=== PATIENT | male | born 1950 | race Caucasian/White ===

== ENCOUNTER 2017-10-06 17:59 | Emergency (ER) | payer MEDICARE ==
[2017-10-06 19:08] LABS: Lactate 0.78 mmol/L (0.50-2.20)
[2017-10-06 19:09] LABS: #Basophils 0.1 thou/uL (0.0-0.2); #Eosinphils 0.2 thou/uL (0.0-0.7); #Monocytes 0.8 thou/uL (0.11-0.59); #Neutrophils 8.8 thou/uL (1.40-6.50); %Basophils 0.5 % (0.0-1.0); %Lymphocytes 17.1 % (21.0-51.0); %Neutrophils 73.5 % (42.0-75.0); Hemoglobin 11.3 g/dL (14.0-18.0); Mean Platelet Volume 6.9 fL (7.4-10.4); Platelet Count 248 thou/uL (130-400); RBC Distribution Width 13.7 % (11.5-14.5); Red Blood Cell (RBC) Count 3.91 mill/uL (4.70-6.10); White Blood Cell (WBC) Count 11.9 thou/uL (4.8-10.8)
[2017-10-06 19:15] LABS: INR-International Normal Ratio 1.7; Prothrombin Time 20.1 SEC (12.0-14.7)
[2017-10-06 19:31] LABS: Anion Gap 12 mmol/L (10-20); BUN (Urea Nitrogen) 13 mg/dL (8.4-25.7); Calc. Creatinine Clearance 0 mL/min (70-130); Carbon Dioxide 28 mmol/L (23-31); Chloride 99 mmol/L (98-107); Estimated GFR-MDRD Greater than 90; Glucose 102 mg/dL (80-115); Potassium 4.3 mmol/L (3.5-5.1); Sodium 135 mmol/L (136-145)
--- NOTE | 2017-10-06 20:17 | RAD ---
FRONTAL VIEW CHEST: 10/06/17 COMPARISON: None. HISTORY: Fever. FINDINGS: there is no lobar consolidation. Minimal patchy bibasilar densities are seen. Evidence of prior farah otomy. Cardiac silhouette is mildly enlarged. Hardware overlies the thoracic spine. No significant va scular congestion. IMPRESSION: No lobar consolidation. Prominent cardiac silhouette indicating CHF. Correlate clinically. POS: [facility]
--- NOTE | 2017-10-06 21:08 | ULT ---
RIGHT UPPER EXTREMITY VENOUS ULTRASOUND [place] SCALE AND DOPPLER COLOR FLOW IMAGING PERFORMED WITH SPECTRAL ANALYSIS 10/06/17 INDICATION: Pain, edema. FINDINGS: There is abnormal decreased flow and lack of compressibility involving the brachial vein at the level of the proximal forearm. Otherwise, the deep vein structures of the right upper extremity reveal com pressibility and flow. There is soft tissue edema incidentally noted. IMPRESSION: Short segment occlusive thrombus involving the brachial vein at the level of the proximal forearm. Notification of report placed at 1949 hours, 10/06/17. Code CR POS: [facility]
[2017-10-06] MEDS ORDERED: Enoxaparin Sodium 60 MG/0.6 ML SYRINGE ONE (22:02)
[2017-10-06] MEDS ORDERED: Enoxaparin Sodium 100 MG/ML SYRINGE ONE (22:02)
[2017-10-06 22:26] LABS: Bilirubin Negative (Negative); Blood, Urine Negative (Negative); Clarity CLEAR (Clear); Glucose, Urine (Dipstick) Negative (Negative); Leukocyte Negative (Negative); Nitrite Negative (Negative); Protein, Urine (Dipstick) Negative (Neg-Trace)
== END 2017-10-06 22:48 | disposition home or self-care (01) ==
LOC: ERS 17:59
DX: I82.621 Acute embolism and thrombosis of deep veins of right upper extremity (principal); E78.5 Hyperlipidemia, unspecified; I10 Essential (primary) hypertension
CPT/HCPCS: 36415; 71045; 80048; 81003; 83605; 85025; 85610; 87040; 96372; J1650